=== PATIENT | female | born 1955 | race Caucasian/White ===

== ENCOUNTER 2016-04-21 20:56 | Observation (INO) | payer OTHER ==
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
[2016-04-21] MEDS: IBUPROFEN 600 MG TAB PO STA (22:27)
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
[2016-04-21] MEDS ORDERED: RX INFO: IV CONTRAST WAS GIVEN 1 EACH MISC MISCELLANE PRN (22:54)
[2016-04-21 23:16] LABS: Basophils % (A) 0 %; CH 30.1; CHCM 32.7; Eosinophils # (A) 0.3 k/uL (0-0.7); Eosinophils % (A) 2 %; HCT 43.4 % (34.0-46.0); HDW 2.21; Luc # (Auto) 0.08; Luc % (Auto) 1; Lymphocytes # (A) 1.9 k/uL (1.0-4.8); Lymphocytes % (A) 14 %; MCH 29.9 pg (25.0-35.0); MCHC 32.4 g/dL (31.0-37.0); MCV 92.3 fL (80.0-100.0); Monocytes # (A) 0.4 k/uL (0-1.0); Monocytes % (A) 3 %; Neutrophils # (A) 10.5 k/uL (1.3-7.7); Neutrophils % (A) 80 %; RDW 13.2 % (11.5-15.5); WBC (Perox) 13.07
[2016-04-21 23:26] LABS: ALT 38 U/L (9-52); AST 54 U/L (14-36); Alkaline Phosphatase 68 U/L (38-126); Amylase 75 U/L (30-110); Anion Gap 13 mmol/L; Blood Urea Nitrogen 18 mg/dL (7-17); Calcium 9.3 mg/dL (8.4-10.2); Carbon Dioxide 24 mmol/L (22-30); Chloride 106 mmol/L (98-107); Glucose 99 mg/dL (74-99); Non-African American GFR(MDRD) >60 (>60 ml/min/1.73 sqM); Sodium 143 mmol/L (137-145); Total Bilirubin 0.8 mg/dL (0.2-1.3); Total Protein 7.8 g/dL (6.3-8.2)
[2016-04-21 23:29] LABS: Potassium 4.3 mmol/L (3.5-5.1)
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
[2016-04-22 00:07] LABS: Appearance,Urine Clear (Clear); Bilirubin,Urine Negative (Negative); Glucose,Urine (UA) Negative (Negative); Ketones,Urine Negative (Negative); Leukocyte Esterase,Urine Negative (Negative); Nitrite,Urine Negative (Negative); PH, Urine 6.5 (5.0-8.0); Protein,Urine Negative (Negative); Specific Gravity,Urine 1.012 (1.001-1.035); UA Billing (MACRO vs. MICRO) CHEM; Urobilinogen,Urine <2.0 mg/dL (<2.0)
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
[2016-04-22] MEDS ORDERED: MORPHINE SULFATE 4 MG/ML SYRINGE IV PRN (00:22)
[2016-04-22] MEDS ORDERED: IBUPROFEN 400 MG TAB PO PRN (00:22)
[2016-04-22] MEDS ORDERED: NALOXONE 0.4 MG/ML 1 ML VIAL IV PRN (00:22)
[2016-04-22] MEDS ORDERED: ONDANSETRON 4 MG/2 ML VIAL IVP PRN (00:22)
[2016-04-22] MEDS ORDERED: SODIUM CHLORIDE 0.9% 1,000 ML IV SCH (00:30)
[2016-04-22 02:03] VITALS: BMI 24.2
[2016-04-22 07:37] VITALS: RESP 16; TEMP 98.5
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
[2016-04-22 11:52] VITALS: BP 149/67; PULSE 57
[2016-04-22] MEDS: IBUPROFEN 600 MG TAB PO STA (12:44)
== END 2016-04-22 14:15 | disposition home or self-care (01) ==
LOC: EC 20:56 → 3OBS 04-22 00:22
PROVIDERS: ADMIT Orthopaedic Surgery; ATTEND Orthopaedic Surgery
DX: S32.019A Unspecified fracture of first lumbar vertebra, initial encounter for closed fracture (principal); S32.029A Unspecified fracture of second lumbar vertebra, initial encounter for closed fracture; Z98.1 Arthrodesis status; I10 Essential (primary) hypertension; V89.2XXA Person injured in unspecified motor-vehicle accident, traffic, initial encounter
CPT/HCPCS: 36415; 80053; 82150; 83690; 85025; 81003; 71020; 72110; 72125; 72132; 70450; 74177; 99285; G0378; Q9967

== ENCOUNTER 2016-05-13 10:00 | Emergency (ER) | payer OTHER ==
[2016-05-13 10:13] VITALS: BP 178/76; PULSE 73; RESP 18; TEMP 98.8
--- NOTE | 2016-05-13 10:25 | ED ---
Lower Extremity Injury HPI - General Chief Complaint: Extremity Injury, Lower Stated Complaint: rt knee injury Time Seen by Provider: 05/13/16 10:15 Source: patient, RN notes reviewed Mode of arrival: wheelchair Limitations: no limitations - History of Present Illness Initial Comments: 61-year-old female presents to the emergency department with a chief complaint of right knee pain. Patient states that she was [place] [employer] and she was dancing. Patient states that she then felt a pop to her knee. Patient states that she' s felt very unsteady on her feet. Patient states she has pain in the posterior aspect of the knee. Patient denies any injury to the knee in the past. Patient states that she hasn't had any other falls or traumas. Patient states that she was concerned due to the continued pain and instability so she thought that she should be evaluated. Patient denies any recent fever, chills, shortness of breath, chest pain, back pain, abdominal pain, nausea vomiting, numbness or tingling, dysuria or hematuria, constipation or diarrhea, headaches or visual changes, or any other current symptoms. - Related Data Home Medications Medication Instructions Recorded Confirmed FLUoxetine HCL [Fluoxetine HCl] 20 mg PO DAILY 04/22/16 04/22/16 Lisinopril-Hctz 10-12.5 mg 1 tab PO DAILY 04/22/16 04/22/16 [Zestoretic 10-12.5] Previous Rx's Medication Instructions Recorded Ibuprofen [Motrin] 600 mg PO Q6HR PRN #90 tab 04/22/16 Allergies Allergy/AdvReac Type Severity Reaction Status Date / Time No Known Allergies Allergy Verified 05/13/16 10:12 Review of Systems ROS Statement: Those systems with pertinent positive or pertinent negative responses have been documented in the HPI. ROS Other: All systems not noted in ROS Statement are negative. Past Medical History Past Medical History: Hypertension Additional Past Medical History / Comment(s): lower back vertebrae fracture History of Any Multi-Drug Resistant Organisms: None Reported Past Surgical History: Back Surgery, Hysterectomy Additional Past Surgical History / Comment(s): T11 - L4 pt states there is rods and hardware in back. unsure of year surgery done Past Anesthesia/Blood Transfusion Reactions: No Reported Reaction Past Psychological History: No Psychological Hx Reported Smoking Status: Never smoker Past Alcohol Use History: None Reported Past Drug Use History: None Reported - Past Family History Mother History Unknown: Yes Family Medical History: Congestive Heart Failure (CHF) General Exam - General Exam Comments Initial Comments: General: The patient is awake and alert, in no distress, and does not appear acutely ill. Neck: The neck is supple, there is no tenderness. Cardiovascular: There is a regular rate and rhythm. No murmur, rub or gallop is appreciated. Respiratory: Lungs are clear to auscultation, respirations are non-labored, breath sounds are equal. No wheezes, stridor, rales, or rhonchi. Musculoskeletal: Sensation intact with 2+ pulses. Right lower extremity. Range of motion of right hip right knee and right ankle. Patient does have full range of motion of the right knee. Patient has some tenderness and posterior aspect. No gross laxity observed. Neurological: CN II-XII intact, There are no obvious motor or sensory deficits. Coordination appears grossly intact. Speech is normal. Skin: Skin is warm and dry and no rashes or lesions are noted. Psychiatric: Normal mood and affect. Limitations: no limitations Course Vital Signs 05/13/16 10:09 Temperature 98.8 F Pulse Rate 73 Respiratory 18 Rate Blood Pressure 178/76 O2 Sat by Pulse 97 Oximetry Medical Decision Making - Medical Decision Making 61-year-old female presents emergency department chief complaint of right knee unsteadiness in pain. at this time patient xray was reviewed that no acute process. at this time patient was placed in a knee immobilizer and was informed to follow up with ortho. we discussed return parameters. patient is in agreement with the plan. All questions have been answered. Patient will be discharged. - Radiology Data Radiology results: image reviewed Interpreted by me: 3 view xray right knee no fracture, dislocation, foreign body or any other acute findings. awaiting official radiology read. Disposition Clinical Impression: Right knee sprain Disposition: HOME SELF-CARE Condition: Stable Instructions: Knee Sprain (ED) Additional Instructions: please use motrin for pain. follow up as directed. return for any worsening or changing symptoms. Referrals: Amandeep Denis DO [Primary Care Provider] - 1-2 days Carroll Shah MD [STAFF PHYSICIAN] - 1-2 days Time of Disposition: 10:50
[2016-05-13] MEDS ORDERED: IBUPROFEN 600 MG STARTER PACK 4 TAB BTL PO STA (10:45)
--- NOTE | 2016-05-13 10:49 | XR ---
EXAMINATION TYPE: XR knee complete RT DATE OF EXAM: 05/13/2016 10:43 AM COMPARISON: NONE HISTORY: Right knee pain TECHNIQUE: Four views are submitted. FINDINGS: Joint spaces are preserved. Hypertrophic change of the patella seen with a prominent spur along the s uperior margin. Osseous structures are intact. No acute fracture seen. IMPRESSION: 1. No acute fracture or dislocation.
== END 2016-05-13 10:57 | disposition home or self-care (01) ==
LOC: EC 10:00
DX: S83.91XA Sprain of unspecified site of right knee, initial encounter (principal); I10 Essential (primary) hypertension; Z79.899 Other long term (current) drug therapy; X58.XXXA Exposure to other specified factors, initial encounter; Y93.41 Activity, dancing; Y92.22 Religious institution as the place of occurrence of the external cause
CPT/HCPCS: 99283; 73562; L1830

== ENCOUNTER → 2017-12-05 | Outpatient (CLI) | payer OTHER ==
--- NOTE | 2017-12-08 13:23 | MM ---
Reason for exam: screening (asymptomatic). Last mammogram was performed 14 years and 10 months ago. History: Took progesterone for 1 month. Physical Findings: A clinical breast exam by your physician is recommended on an annual basis and results should be correlated with mammographic findings. MG Screening Mammo w CAD Bilateral CC and MLO view(s) were taken. Prior study comparison: July 13, 2009, mammogram, performed at [facility]. April 21, 2008, mammogram, performed at [facility]. The breast tissue is heterogeneously dense. This may lower the sensitivity of mammography. No significant changes when compared with prior studies. ASSESSMENT: Benign, BI-RAD 2 RECOMMENDATION: Routine screening mammogram of both breasts in 1 year.
== END | disposition home or self-care (01) ==
LOC: RADMAMWWP 16:46
PROVIDERS: ATTEND Family Medicine
DX: Z12.31 Encounter for screening mammogram for malignant neoplasm of breast (principal)
CPT/HCPCS: 77067

== ENCOUNTER → 2018-05-04 | Outpatient (CLI) | payer OTHER ==
--- NOTE | 2018-05-04 15:10 | XR ---
EXAMINATION TYPE: XR wrist complete RT DATE OF EXAM: 05/04/2018 COMPARISON: NONE HISTORY: Pain TECHNIQUE: Four views submitted. FINDINGS: The osseous structures are intact. The joint spaces are preserved and there is no acute fracture or dislocation. There is a 1 cm soft tissue calcification or ossification adjacent to the base of the fi rst metacarpal. Arthropathy of the first carpal metacarpal joint noted. IMPRESSION: 1. 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 There also is a 1 cm soft tissue calcificatio n or ossification adjacent to the base of the first metacarpal and trapezium. This could be evaluated with MRI as clinically warranted.
== END ==
LOC: RADXRMAIN 14:21
PROVIDERS: ATTEND Family Medicine
DX: M19.041 Primary osteoarthritis, right hand (principal)

== ENCOUNTER → 2019-09-20 | Outpatient (CLI) | payer OTHER | END | disposition home or self-care (01) | LOC: LABWHC1 11:23 | PROVIDERS: ATTEND Physician Assistant | DX: Z20.828 Contact with and (suspected) exposure to other viral communicable diseases (principal) | CPT/HCPCS: 36415; 86769 ==